=== PATIENT | female | born 1975 | race Caucasian/White ===

== ENCOUNTER 2017-12-19 11:24 | Inpatient (IN) ==
[2017-12-19] MEDS ORDERED: Sod Chloride 0.9% Inj 1,000 ML IV.SIG ONE (11:47)
[2017-12-19] MEDS ORDERED: Charcoal Activated Liq 25 GM/120 ML Bottle NG/OG ONE (11:54)
--- NOTE | 2017-12-19 12:01 | ED ---
HPI General Chief Complaint: Overdose Stated Complaint: Poss OD Time Seen by Provider: 12/19/17 11:42 Source: patient Mode of arrival: ambulatory Limitations: no limitations History of Present Illness HPI Narrative: 42-year-old female states that she overdosed on Motrin and Tylenol this morning. Patient states that she was feeling suicidal and took Motrin 200 mg, 4 tablets. Patient states that she took Tylenol 5 mg, 50 tablets this morning also. Patient states that she took the medication around 11:15 this morning. Patient states that she has mild headache. Patient denies any visual change. Patient denies any chest pain. Patient states that she has mild shortness of breath. Patient denies abdominal pain. Patient denies any focal weakness numbness of extremity. Patient denies any aspirin or alcohol consumption. Patient states that she on routine arthritis medication that she does not know the name of. Patient denies any history of suicidal attempts in the past. complaint: Reports intentional overdose Onset (ago): minute(s) Time: 11:15 Intent: suicide attempt How Overdose Was Discovered: other Treatments Prior to Arrival: none Related Data Home Medications Medication Instructions Recorded Confirmed Unable to Obtain Home Meds 12/19/17 12/19/17 Allergies Allergy/AdvReac Type Severity Reaction Status Date / Time Penicillins Allergy Anaphylaxis Verified 12/19/17 11:39 Review of Systems ROS: all other systems reviewed are negative [facility] Medical History Medical History Arthritis (Acute) Cholecystectomy planned (Acute) Depression (Acute) Social History Social History Substance History: No History of Abuse Second Hand Smoke Exposure: No Smoking Status: Never smoker How Often Do You Have a Drink Containing Alcohol: Never Recent Travel in [place] within the Last 8 Weeks: No Recent Out of Country Travel within the Last 8 Weeks: No Immunization History Tetanus Immunization: Unsure Exam Narrative Exam Narrative: GENERAL: Well-nourished, well-developed patient. SKIN: Focused skin assessment warm/dry. HEAD: Normocephalic. EYES: No scleral icterus. No injection or drainage. NECK: Supple, trachea midline. No JVD or lymphadenopathy. CARDIOVASCULAR: Regular rate and rhythm without murmurs, gallops, or rubs. RESPIRATORY: Breath sounds equal bilaterally. No accessory muscle use. GASTROINTESTINAL: Abdomen soft, non-tender, nondistended. MUSCULOSKELETAL: No cyanosis, or edema. BACK: Nontender without obvious deformity. No CVA tenderness. Neurologic exam normal. Course Initial Documented Vital Signs Temperature 98 F 12/19/17 11:32 Pulse Rate 111 H 12/19/17 11:32 Respiratory Rate 18 12/19/17 11:32 Blood Pressure 135/58 L 12/19/17 11:32 Pulse Oximetry 95 12/19/17 11:32 Last Documented Vital Signs Temperature 98 F 12/19/17 11:32 Pulse Rate 106 H 12/19/17 11:36 Respiratory Rate 18 12/19/17 11:36 Blood Pressure 116/57 L 12/19/17 11:36 Pulse Oximetry 96 12/19/17 11:55 Medical Decision Making MDM Narrative Medical decision making narrative: 42-year-old female stated overdose on Motrin and Tylenol. Poison control contacted. Advised routine blood work, charcoal, Tylenol level. Medical Screen Exam Complete: Yes Emergency Medical Condition: Yes Differential Diagnosis Differential Diagnosis: Differential diagnosis including depression, suicidal, drug overdose. Lab Data Result diagrams: 12/19/17 12:00 12/19/17 12:00 POC Results POC Urine Results Negative Lab Results 12/19/17 12/19/17 12/19/17 Range/Units 11:34 12:00 12:00 WBC 7.1 (4.0-11.0) th/mm3 RBC 4.15 (4.00-5.30) mil/mm3 Hgb 12.8 (11.6-15.3) gm/dL Hct 38.2 (35.0-46.0) % MCV 91.9 (80.0-100.0) fL MCH 30.9 (27.0-34.0) pg MCHC 33.6 (32.0-36.0) % RDW 14.4 (11.6-17.2) % Plt Count 237 (150-450) th/mm3 MPV 8.0 (7.0-11.0) fL Neut % (Auto) 58.7 (16.0-70.0) % Lymph % (Auto) 33.4 (9.0-44.0) % [place] % (Auto) 6.7 (0.0-8.0) % Eos % (Auto) 0.8 (0.0-4.0) % Baso % (Auto) 0.4 (0.0-2.0) % Neut # (Auto) 4.2 (1.8-7.7) th/mm3 Lymph # (Auto) 2.4 (1.0-4.8) th/mm3 [place] # (Auto) 0.5 (0.0-0.9) th/mm3 Eos # (Auto) 0.1 (0.0-0.4) th/mm3 Baso # (Auto) 0.0 (0.0-0.2) th/mm3 WBC Differential . Differential Comment Auto diff final PT 10.0 (9.8-11.6) sec INR 1.0 Ratio Sodium (136-145) meq/L Potassium (3.5-5.1) meq/L Chloride (98-107) meq/L Carbon Dioxide (21.0-32.0) meq/L Anion Gap (5-15) meq/L BUN (7-18) mg/dL Creatinine (0.50-1.00) mg/dL Estimated GFR (>89) mL/min POC Glucose 119 H (68-110) mg/dl Random Glucose (74-106) mg/dL Calcium (8.5-10.1) mg/dL Total Bilirubin (0.2-1.0) mg/dL AST (15-37) U/L ALT (10-53) U/L Alkaline Phosphatase (45-117) U/L Total Protein (6.4-8.2) g/dL Albumin (3.4-5.0) g/dL Salicylates (2.8-20.0) mg/dL Acetaminophen (10.0-30.0) mcg/mL Serum Alcohol (0-5) mg/dL 12/19/17 12/19/17 Range/Units 12:00 12:00 WBC (4.0-11.0) th/mm3 RBC (4.00-5.30) mil/mm3 Hgb (11.6-15.3) gm/dL Hct (35.0-46.0) % MCV (80.0-100.0) fL MCH (27.0-34.0) pg MCHC (32.0-36.0) % RDW (11.6-17.2) % Plt Count (150-450) th/mm3 MPV (7.0-11.0) fL Neut % (Auto) (16.0-70.0) % Lymph % (Auto) (9.0-44.0) % [place] % (Auto) (0.0-8.0) % Eos % (Auto) (0.0-4.0) % Baso % (Auto) (0.0-2.0) % Neut # (Auto) (1.8-7.7) th/mm3 Lymph # (Auto) (1.0-4.8) th/mm3 [place] # (Auto) (0.0-0.9) th/mm3 Eos # (Auto) (0.0-0.4) th/mm3 Baso # (Auto) (0.0-0.2) th/mm3 WBC Differential Differential Comment PT (9.8-11.6) sec INR Ratio Sodium 140 (136-145) meq/L Potassium 4.5 (3.5-5.1) meq/L Chloride 106 (98-107) meq/L Carbon Dioxide 22.7 (21.0-32.0) meq/L Anion Gap 11 (5-15) meq/L BUN 10 (7-18) mg/dL Creatinine 0.75 (0.50-1.00) mg/dL Estimated GFR 86 L (>89) mL/min POC Glucose (68-110) mg/dl Random Glucose 97 (74-106) mg/dL Calcium 9.1 (8.5-10.1) mg/dL Total Bilirubin 0.6 (0.2-1.0) mg/dL AST 83 H (15-37) U/L ALT 117 H (10-53) U/L Alkaline Phosphatase 74 (45-117) U/L Total Protein 7.7 (6.4-8.2) g/dL Albumin 3.5 (3.4-5.0) g/dL Salicylates Less than 1.7 L (2.8-20.0) mg/dL Acetaminophen 269.0 H* (10.0-30.0) mcg/mL Serum Alcohol Less than 3 (0-5) mg/dL Imaging Data Radiologist's impression: Chest X-Ray 12/19/17 11:47 CONCLUSION: No acute cardiopulmonary process Discharge Plan Discharge Disposition Patient Disposition: 30 Still Patient Discharge Details Diagnosis: Acetaminophen overdose Physicians Team ED Provider: Edwar Ryan Primary Care Provider: Primary Care Arlette Richter Rxs /Orders / Referrals /Forms Prescriptions: No Action Unable to Obtain Home Meds RF: 0 Discharge Interventions Interventions: Vital Signs Last Done: 12/19/17 13:00 Status ED Status: With Doctor
--- NOTE | 2017-12-19 12:06 | XR ---
EXAM DATE: 12/19/2017 11:59 AM EDT AGE/SEX: 42 years / Female INDICATIONS: Short of breath CLINICAL DATA: This is the patient's initial encounter. Patient reports that signs and symptoms have been present for 1 day and indicates a pain score of 0/10. MEDICAL/SURGICAL HISTORY: None. None. COMPARISON: No prior exams available for comparison. FINDINGS: A single AP view of the chest demonstrates the lungs to be symmetrically aerated without evidence of mass, infiltrate or effusion. The cardiomediastinal contours are unremarkable. Osseous structures a re intact. CONCLUSION: No acute cardiopulmonary process Electronically signed by: Sohail Acuna MD 12/19/2017 12:04 PM EDT
[2017-12-19 12:14] LABS: Baso % (Auto) 0.4 % (0.0-2.0); Eos # (Auto) 0.1 th/mm3 (0.0-0.4); Eos % (Auto) 0.8 % (0.0-4.0); Hematocrit 38.2 % (35.0-46.0); Hemoglobin 12.8 gm/dL (11.6-15.3); Lymph # (Auto) 2.4 th/mm3 (1.0-4.8); Lymph % (Auto) 33.4 % (9.0-44.0); Mean Corpuscular HGB Conc 33.6 % (32.0-36.0); Mean Corpuscular Hemoglobin 30.9 pg (27.0-34.0); Mean Corpuscular Volume 91.9 fL (80.0-100.0); Mono # (Auto) 0.5 th/mm3 (0.0-0.9); Mono % (Auto) 6.7 % (0.0-8.0); Neut # (Auto) 4.2 th/mm3 (1.8-7.7); Neut % (Auto) 58.7 % (16.0-70.0); Platelet Count 237 th/mm3 (150-450); Red Blood Count 4.15 mil/mm3 (4.00-5.30); Red Cell Distribution Width 14.4 % (11.6-17.2); White Blood Count 7.1 th/mm3 (4.0-11.0)
[2017-12-19 12:44] LABS: Alanine Aminotransferase 117 U/L (10-53); Albumin 3.5 g/dL (3.4-5.0); Alkaline Phosphatase 74 U/L (45-117); Anion Gap 11 meq/L (5-15); Aspartate Aminotransferase 83 U/L (15-37); Blood Urea Nitrogen 10 mg/dL (7-18); Calcium 9.1 mg/dL (8.5-10.1); Carbon Dioxide 22.7 meq/L (21.0-32.0); Chloride 106 meq/L (98-107); Glomerular Filtration Rate 86 mL/min (>89); Glucose,Random 97 mg/dL (74-106); Potassium 4.5 meq/L (3.5-5.1); Sodium 140 meq/L (136-145); Total Protein 7.7 g/dL (6.4-8.2)
[2017-12-19] MEDS ORDERED: ACETYLCYSTEINE IV.SIG ONE ×8 (12:55→22:00)
[2017-12-19] MEDS ORDERED: WATER IV.SIG ONE ×8 (12:55→22:00)
[2017-12-19] MEDS ORDERED: DEXTROSE 5% IV.SIG ONE ×8 (12:55→22:00)
--- NOTE | 2017-12-19 14:40 | P.HP ---
History of Present Illness Primary Care Physician: No Primary Care Physician Chief Complaint: Suicidal ideation/Tylenol OD History of Present Illness: 42-year-old female with a past medical history of depression, no prior history of suicidal ideation was brought to the ED for suicidal attempt. Patient states , she was trying to put in a.m. to her misery by taking 50 pills of 500 mg Tylenol along with 4 tablets of ibuprofen around 1130 this a.m. She states, within 15 minutes of taking dose medication she started feeling tired without any shortness of breath or chest pain. By the time she was brought to the ED after EMS was called patient states she wanted to go to sleep. She currently complains of headaches. She endorsed depression over the loss of the family home about a month ago. However, she denies any homicidal ideation. She is currently homeless. Patient also states about 5 years ago her daughter passed from complication of leukemia. Poison control was called by ED admitting physician. - Diagnosis (1) Acetaminophen overdose (2) Transaminitis (3) Depression Inpatient Certification: I certify that the inpatient services were ordered in accordance with Medicare regulations governing the order. This includes certification that hospital inpatient services are reasonable and necessary and in the case of services not specified as inpatient-only under 42 CFR 419.22(n), that they are appropriately provided as inpatient services in accordance to with the 2-midnight benchmark under 43 CFR 412.3(e) Estimated Total Length of Stay (Days): 2 Plans for Post Hospital Care: Other Review of Systems All other systems reviewed negative except as stated in HPI PMFSH - History History Provided By: Patient - Medical History Medical History: Medical History (Last Reviewed 12/19/17 @ 11:59 by Edwar Ryan MD) Arthritis Cholecystectomy planned Depression - Family History Family History: Family History (Last Updated 12/19/17 @ 14:38 by Colby Liao MD) Other Diabetes - Tobacco History Second Hand Smoke Exposure: No Smoking Status: Never smoker - Alcohol History How Often Do You Have a Drink Containing Alcohol: Never - Substance Use History Substance History: No History of Abuse - Travel History Recent Travel in the [place] Within the Last 8 Weeks: No Recent Travel Out of the Country Within the Last 8 Weeks: No - Immunization History Tetanus Immunization: Unsure Medications and Allergies Active Medications: Active Medications Al Hydroxide/Mg Hydroxide (Milk Of Magnesia Liq) 30 ml PO Q12H PRN PRN Reason: Mild Constipation Sodium Chloride (Ns Inj) 1,000 mls @ 70 mls/hr IV.CONT .[id number] JARVIS Ondansetron HCl (Zofran Inj) 4 mg IV.PUSH Q6H PRN PRN Reason: NAUSEA OR VOMITING Allergies Allergy/AdvReac Type Severity Reaction Status Date / Time Penicillins Allergy Anaphylaxis Verified 12/19/17 11:39 Home Medications Medication Instructions Recorded Confirmed Type Unable to Obtain Home Meds 12/19/17 12/19/17 History Exam Vital signs: Vital Signs 12/19/17 11:32 12/19/17 11:36 12/19/17 11:55 Temperature 98 F Pulse Rate 111 H 106 H Respiratory Rate 18 18 Blood Pressure 135/58 L 116/57 L Pulse Oximetry 95 97 96 12/19/17 13:00 12/19/17 13:39 Temperature Pulse Rate 82 77 Respiratory Rate 20 18 Blood Pressure 143/63 H 131/60 Pulse Oximetry 95 95 Intake & Output 12/18/17 12/19/17 12/19/17 18:59 06:59 18:59 Intake Total 1000 / 1000 Balance 1000 / 1000 Weight 136.078 kg Intake: IV 1000 / 1000 NS Inj 1,000 ML @ Wide Open IV. 1000 / 1000 SIG BOLUS ONE Rx#:[id number] Narrative: GENERAL: NAD SKIN: Warm and dry. HEAD: Atraumatic. Normocephalic. EYES: Pupils equal and round. No scleral icterus. No injection or drainage. ENT: No nasal bleeding or discharge. Mucous membranes pink and moist. NECK: Trachea midline. No JVD. CARDIOVASCULAR: Regular rate and rhythm. RESPIRATORY: No accessory muscle use. Clear to auscultation. Breath sounds equal bilaterally. GASTROINTESTINAL: Abdomen soft, non-tender, nondistended. Hepatic and splenic margins not palpable. MUSCULOSKELETAL: Extremities without clubbing, cyanosis, or edema. No obvious deformities. NEUROLOGICAL: Awake and alert. No obvious cranial nerve deficits. Motor grossly within normal limits. Five out of 5 muscle strength in the arms and legs. Normal speech. PSYCHIATRIC: depressed mood and flat affect; insight and judgment poor. Results - Labs CBC & Chem 7: 12/19/17 12:00 12/19/17 12:00 Labs: Laboratory Results - last 24 hr 12/19/17 12/19/17 12/19/17 11:34 12:00 12:00 WBC 7.1 RBC 4.15 Hgb 12.8 Hct 38.2 MCV 91.9 MCH 30.9 MCHC 33.6 RDW 14.4 Plt Count 237 MPV 8.0 Neut % (Auto) 58.7 Lymph % (Auto) 33.4 [place] % (Auto) 6.7 Eos % (Auto) 0.8 Baso % (Auto) 0.4 Neut # (Auto) 4.2 Lymph # (Auto) 2.4 [place] # (Auto) 0.5 Eos # (Auto) 0.1 Baso # (Auto) 0.0 WBC Differential . Differential Comment Auto diff final PT 10.0 INR 1.0 Sodium Potassium Chloride Carbon Dioxide Anion Gap BUN Creatinine Estimated GFR POC Glucose 119 H Random Glucose Calcium Total Bilirubin AST ALT Alkaline Phosphatase Total Protein Albumin Salicylates Acetaminophen Serum Alcohol 12/19/17 12/19/17 12:00 12:00 WBC RBC Hgb Hct MCV MCH MCHC RDW Plt Count MPV Neut % (Auto) Lymph % (Auto) [place] % (Auto) Eos % (Auto) Baso % (Auto) Neut # (Auto) Lymph # (Auto) [place] # (Auto) Eos # (Auto) Baso # (Auto) WBC Differential Differential Comment PT INR Sodium 140 Potassium 4.5 Chloride 106 Carbon Dioxide 22.7 Anion Gap 11 BUN 10 Creatinine 0.75 Estimated GFR 86 L POC Glucose Random Glucose 97 Calcium 9.1 Total Bilirubin 0.6 AST 83 H ALT 117 H Alkaline Phosphatase 74 Total Protein 7.7 Albumin 3.5 Salicylates Less than 1.7 L Acetaminophen 269.0 H* Serum Alcohol Less than 3 - Imaging Impressions Chest X-Ray 12/19/17 11:47 CONCLUSION: No acute cardiopulmonary process Caprini VTE Risk Assessment Caprini VTE Risk Assessment: No/Low Risk (score <= 1) Caprini Risk Assessment Model: Point Value = 1 Point Value = 2 Point Value = 3 Point Value = 5 Age 41-60 Minor surgery BMI > 25 kg/m2 Swollen legs Varicose veins or History of unexplained or recurrent spontaneous Oral contraceptives or hormone replacement Sepsis (< 1 month) Serious lung disease, including pneumonia (< 1 month) Abnormal pulmonary function Acute myocardial infarction Congestive heart failure (< 1 month) History of inflammatory bowel disease Medical patient at bed rest Age 61-74 Arthroscopic surgery Major open surgery (> 45 min) Laparoscopic surgery (> 45 min) Malignancy Confined to bed (> 72 hours) Immobilizing plaster cast Central venous access Age >= 75 History of VTE Family history of VTE Factor V Leiden Prothrombin [id number] Lupus anticoagulant Anticardiolipin antibodies Elevated serum homocysteine Heparin-induced thrombocytopenia Other congenital or acquired thrombophilia Stroke (< 1 month) Elective arthroplasty Hip, pelvis, or leg fracture Acute spinal cord injury (< 1 month) Prophylaxis Regimen: Total Risk Factor Score Risk Level Prophylaxis Regimen 0-1 Low Early ambulation 2 Moderate Order ONE of the following: *Sequential Compression Device (SCD) *Heparin 5000 units SQ BID 3-4 Higher Order ONE of the following medications: *Heparin 5000 units SQ TID *Enoxaparin/Lovenox 40 mg SQ daily (WT < 150 kg, CrCl > 30 mL/min) *Enoxaparin/Lovenox 30 mg SQ daily (WT < 150 kg, CrCl > 10-29 mL/min) *Enoxaparin/Lovenox 30 mg SQ BID (WT < 150 kg, CrCl > 30 mL/min) AND/OR *Sequential Compression Device (SCD) 5 or more Highest Order ONE of the following medications: *Heparin 5000 units SQ TID (Preferred with Epidurals) *Enoxaparin/Lovenox 40 mg SQ daily (WT < 150 kg, CrCl > 30 mL/min) *Enoxaparin/Lovenox 30 mg SQ daily (WT < 150 kg, CrCl > 10-29 mL/min) *Enoxaparin/Lovenox 30 mg SQ BID (WT < 150 kg, CrCl > 30 mL/min) AND *Sequential Compression Device (SCD) Assessment and Plan - Assessment (1) Acetaminophen overdose Code(s): T39.1X1A - Poisoning by 4-Aminophenol derivatives, accidental ( unintentional), initial encounter Status: Acute (2) Transaminitis Code(s): R74.0 - Nonspecific elevation of levels of transaminase and lactic acid dehydrogenase [LDH] Status: Acute (3) Depression Code(s): F32.9 - Major depressive disorder, single episode, unspecified Status : Acute - Plan 42-year-old female with Acetaminophen overdose Poison control was contacted, and patient underwent treatment with N acetylcysteine, charcoal per protocol Continue monitoring acetaminophen and salicylate levels, LFTs, INR Gentle IV fluid hydration Neuro check, telemetry Admit to ICU History of depression Suicidal attempt Psychiatry consultation pending Transaminitis Check hepatitis profile DVT prophylaxis: Bilateral SCDs (1) Acetaminophen overdose Qualifiers: Encounter type: initial encounter Injury intent: intentional self-harm Qualified Code(s): T39.1X2A - Poisoning by 4-Aminophenol derivatives, intentional self-harm, initial encounter
[2017-12-19 14:44] LABS: Bacteria,Urine Rare /hpf; Bilirubin,Urine Negative (Negative); Clarity,Urine Clear (Clear); Color,Urine Yellow (Yellw/Straw); Glucose,Urine (UA) Negative (Negative); Leukocyte Esterase,Urine Negative (Negative); Mucus,Urine Few /lpf (Occasional); Nitrite,Urine Negative (Negative); Specific Gravity,Urine 1.013 (1.002-1.035); Squamous Epithelial Cell,Urine 1 /hpf (0-5)
[2017-12-19 14:49] LABS: Amphetamine Screen,Urine Neg (Neg); Barbiturate Screen,Urine Neg (Neg); Cannabinoid Screen,Urine Neg (Neg); Cocaine Screen,Urine Neg (Neg)
[2017-12-19 14:50] LABS: Opiate Screen,Urine Neg (Neg)
[2017-12-19] MEDS ORDERED: Influenza (Quadrivalent) Vaccine 0.5 ML Syringe IM ONE (16:30)
[2017-12-19] MEDS: Sod Chloride 0.9% Inj 1,000 ML IV.CONT SCH (21:51)
[2017-12-20 00:25] LABS: Hepatitis A IgM Antibody Nonreactive (Nonreactive); Hepatitits B Surface Antigen Nonreactive (Nonreactive)
[2017-12-20] MEDS ORDERED: Chlorhexidine Gluconate 2% 1 Pack (2 Cloths) TOPICAL PRN (04:00)
[2017-12-20] MEDS: Sod Chloride 0.9% Inj 1,000 ML IV.CONT SCH (05:00)
[2017-12-20] MEDS: Chlorhexidine Gluconate 2% 1 Pack (2 Cloths) TOPICAL SCH (05:04)
[2017-12-20 06:17] LABS: Baso % (Auto) 0.5 % (0.0-2.0); Eos % (Auto) 1.4 % (0.0-4.0); Hematocrit 37.1 % (35.0-46.0); Lymph # (Auto) 1.3 th/mm3 (1.0-4.8); Lymph % (Auto) 38.6 % (9.0-44.0); Mean Corpuscular HGB Conc 32.4 % (32.0-36.0); Mean Corpuscular Volume 92.8 fL (80.0-100.0); Mean Platelet Volume 7.8 fL (7.0-11.0); Mono # (Auto) 0.2 th/mm3 (0.0-0.9); Mono % (Auto) 6.4 % (0.0-8.0); Neut # (Auto) 1.8 th/mm3 (1.8-7.7); Neut % (Auto) 53.1 % (16.0-70.0); Platelet Count 206 th/mm3 (150-450); Red Cell Distribution Width 14.9 % (11.6-17.2); White Blood Count 3.3 th/mm3 (4.0-11.0)
[2017-12-20 06:23] LABS: INR 1.1 Ratio; Prothrombin Time 10.7 sec (9.8-11.6)
[2017-12-20 06:39] LABS: Alanine Aminotransferase 98 U/L (10-53); Albumin 2.8 g/dL (3.4-5.0); Alkaline Phosphatase 58 U/L (45-117); Anion Gap 11 meq/L (5-15); Aspartate Aminotransferase 53 U/L (15-37); Blood Urea Nitrogen 5 mg/dL (7-18); Carbon Dioxide 23.8 meq/L (21.0-32.0); Chloride 108 meq/L (98-107); Glomerular Filtration Rate Greater Than 89 mL/min (>89); Glucose,Random 98 mg/dL (74-106); Potassium 3.3 meq/L (3.5-5.1); Sodium 143 meq/L (136-145); Total Protein 6.5 g/dL (6.4-8.2)
--- NOTE | 2017-12-20 09:14 | P.PN ---
Subjective Interval history: Follow-up acetaminophen overdose December 20, 2017-patient seen and examined, she reported one episode of emesis overnight otherwise stable denies any abdominal pain. Vital stable this a.m. Physical Exam Vital signs: Vital Signs 12/19/17 11:32 12/19/17 11:36 12/19/17 11:55 Temperature 98 F Pulse Rate 111 H 106 H Respiratory Rate 18 18 Blood Pressure 135/58 L 116/57 L Pulse Oximetry 95 97 96 12/19/17 13:00 12/19/17 13:39 12/19/17 14:41 Temperature Pulse Rate 82 77 82 Respiratory Rate 20 18 18 Blood Pressure 143/63 H 131/60 140/80 Pulse Oximetry 95 95 12/19/17 20:00 12/20/17 00:00 12/20/17 04:00 Temperature 98.7 F 98.3 F Pulse Rate 74 74 Respiratory Rate 20 16 18 Blood Pressure 130/69 116/61 Pulse Oximetry 96 95 Intake & Output 12/19/17 12/20/17 12/20/17 18:59 06:59 18:59 Intake Total 1275 / 1275 1618 / 1618 Balance 1275 / 1275 1618 / 1618 Weight 126.5 kg 126.5 kg Intake: IV 1275 / 1275 1018 / 1018 Acetadote Inj 10,000 MG In D5W 493 / 493 Inj 1,000 ML @ 65.625 mls/hr IV .SIG ONCE ONE Rx#:[id number] Acetadote Inj 15,000 MG In D5W 275 / 275 Inj 200 ML @ 275 mls/hr IV.SIG ONCE ONE Rx#:[id number] Acetadote Inj 5,000 MG In D5W 525 / 525 Inj 500 ML @ 131.25 mls/hr IV. SIG ONCE ONE Rx#:[id number] NS Inj 1,000 ML @ Wide Open IV. 1000 / 1000 SIG BOLUS ONE Rx#:[id number] Oral 600 / 600 Other: # Voids 1 3 Date of Last Bowel Movement 12/18/17 # Bowel Movements 0 Weight On Admission 126.5 kg Narrative: GENERAL: NAD SKIN: Warm and dry. HEAD: Atraumatic. Normocephalic. EYES: Pupils equal and round. No scleral icterus. No injection or drainage. ENT: No nasal bleeding or discharge. Mucous membranes pink and moist. NECK: Trachea midline. No JVD. CARDIOVASCULAR: Regular rate and rhythm. RESPIRATORY: No accessory muscle use. Clear to auscultation. Breath sounds equal bilaterally. GASTROINTESTINAL: Abdomen soft, non-tender, nondistended. Hepatic and splenic margins not palpable. MUSCULOSKELETAL: Extremities without clubbing, cyanosis, or edema. No obvious deformities. NEUROLOGICAL: Awake and alert. No obvious cranial nerve deficits. Motor grossly within normal limits. Five out of 5 muscle strength in the arms and legs. Normal speech. PSYCHIATRIC: depressed mood and flat affect; insight and judgment poor. Results - Labs CBC & Chem 7: 12/20/17 03:47 12/20/17 03:47 Laboratory Results - last 24 hr 12/19/17 12/19/17 12/19/17 11:34 12:00 12:00 WBC 7.1 RBC 4.15 Hgb 12.8 Hct 38.2 MCV 91.9 MCH 30.9 MCHC 33.6 RDW 14.4 Plt Count 237 MPV 8.0 Neut % (Auto) 58.7 Lymph % (Auto) 33.4 [place] % (Auto) 6.7 Eos % (Auto) 0.8 Baso % (Auto) 0.4 Neut # (Auto) 4.2 Lymph # (Auto) 2.4 [place] # (Auto) 0.5 Eos # (Auto) 0.1 Baso # (Auto) 0.0 WBC Differential . Differential Comment Auto diff final PT 10.0 INR 1.0 Sodium Potassium Chloride Carbon Dioxide Anion Gap BUN Creatinine Estimated GFR POC Glucose 119 H Random Glucose Calcium Total Bilirubin AST ALT Alkaline Phosphatase Total Protein Albumin Urine Color Urine Clarity Urine pH Ur Specific [place] Urine Protein Urine Glucose (UA) Urine Ketones Urine Occult Blood Urine Nitrate Urine Bilirubin Urine Urobilinogen Ur Leukocyte Esterase Urine RBC Urine WBC Ur Squamous Epith Cells Urine Bacteria Urine Mucus Micro UA Comment Ur Microscopic Review Urine Culture Comments Nasal Screen MRSA (PCR) Salicylates Urine Opiates Screen Acetaminophen Ur Barbiturates Screen Ur Amphetamines Screen U Benzodiazepines Scrn Urine Cocaine Screen U Cannabinoids Screen Serum Alcohol Hepatitis A IgM Ab Hep Bs Antigen Hep B Core IgM Ab Hep C IgG Ab 12/19/17 12/19/17 12/19/17 12:00 12:00 14:24 WBC RBC Hgb Hct MCV MCH MCHC RDW Plt Count MPV Neut % (Auto) Lymph % (Auto) [place] % (Auto) Eos % (Auto) Baso % (Auto) Neut # (Auto) Lymph # (Auto) [place] # (Auto) Eos # (Auto) Baso # (Auto) WBC Differential Differential Comment PT INR Sodium 140 Potassium 4.5 Chloride 106 Carbon Dioxide 22.7 Anion Gap 11 BUN 10 Creatinine 0.75 Estimated GFR 86 L POC Glucose Random Glucose 97 Calcium 9.1 Total Bilirubin 0.6 AST 83 H ALT 117 H Alkaline Phosphatase 74 Total Protein 7.7 Albumin 3.5 Urine Color Urine Clarity Urine pH Ur Specific [place] Urine Protein Urine Glucose (UA) Urine Ketones Urine Occult Blood Urine Nitrate Urine Bilirubin Urine Urobilinogen Ur Leukocyte Esterase Urine RBC Urine WBC Ur Squamous Epith Cells Urine Bacteria Urine Mucus Micro UA Comment Ur Microscopic Review Urine Culture Comments Nasal Screen MRSA (PCR) Salicylates Less than 1.7 L Urine Opiates Screen Neg Acetaminophen 269.0 H* Ur Barbiturates Screen Neg Ur Amphetamines Screen Neg U Benzodiazepines Scrn Neg Urine Cocaine Screen Neg U Cannabinoids Screen Neg Serum Alcohol Less than 3 Hepatitis A IgM Ab Hep Bs Antigen Hep B Core IgM Ab Hep C IgG Ab 12/19/17 12/19/17 12/19/17 14:24 15:22 22:03 WBC RBC Hgb Hct MCV MCH MCHC RDW Plt Count MPV Neut % (Auto) Lymph % (Auto) [place] % (Auto) Eos % (Auto) Baso % (Auto) Neut # (Auto) Lymph # (Auto) [place] # (Auto) Eos # (Auto) Baso # (Auto) WBC Differential Differential Comment PT INR Sodium Potassium Chloride Carbon Dioxide Anion Gap BUN Creatinine Estimated GFR POC Glucose Random Glucose Calcium Total Bilirubin AST ALT Alkaline Phosphatase Total Protein Albumin Urine Color Yellow Urine Clarity Clear Urine pH 5.0 Ur Specific [place] 1.013 Urine Protein Negative Urine Glucose (UA) Negative Urine Ketones Negative Urine Occult Blood Negative Urine Nitrate Negative Urine Bilirubin Negative Urine Urobilinogen Less than 2 Ur Leukocyte Esterase Negative Urine RBC Less than 1 Urine WBC 1 Ur Squamous Epith Cells 1 Urine Bacteria Rare H Urine Mucus Few H Micro UA Comment Culture not ind Ur Microscopic Review Not Reportable Urine Culture Comments Culture not ind Nasal Screen MRSA (PCR) Not detected Salicylates Urine Opiates Screen Acetaminophen 23.6 Ur Barbiturates Screen Ur Amphetamines Screen U Benzodiazepines Scrn Urine Cocaine Screen U Cannabinoids Screen Serum Alcohol Hepatitis A IgM Ab Hep Bs Antigen Hep B Core IgM Ab Hep C IgG Ab 12/19/17 12/19/17 12/20/17 22:03 22:03 03:47 WBC RBC Hgb Hct MCV MCH MCHC RDW Plt Count MPV Neut % (Auto) Lymph % (Auto) [place] % (Auto) Eos % (Auto) Baso % (Auto) Neut # (Auto) Lymph # (Auto) [place] # (Auto) Eos # (Auto) Baso # (Auto) WBC Differential Differential Comment PT 10.7 INR 1.1 Sodium Potassium Chloride Carbon Dioxide Anion Gap BUN Creatinine Estimated GFR POC Glucose Random Glucose Calcium Total Bilirubin AST ALT Alkaline Phosphatase Total Protein Albumin Urine Color Urine Clarity Urine pH Ur Specific [place] Urine Protein Urine Glucose (UA) Urine Ketones Urine Occult Blood Urine Nitrate Urine Bilirubin Urine Urobilinogen Ur Leukocyte Esterase Urine RBC Urine WBC Ur Squamous Epith Cells Urine Bacteria Urine Mucus Micro UA Comment Ur Microscopic Review Urine Culture Comments Nasal Screen MRSA (PCR) Salicylates Less than 1.7 L Urine Opiates Screen Acetaminophen Ur Barbiturates Screen Ur Amphetamines Screen U Benzodiazepines Scrn Urine Cocaine Screen U Cannabinoids Screen Serum Alcohol Hepatitis A IgM Ab Nonreactive Hep Bs Antigen Nonreactive Hep B Core IgM Ab Nonreactive Hep C IgG Ab Nonreactive 12/20/17 12/20/17 12/20/17 03:47 03:47 03:47 WBC 3.3 L D RBC 4.00 Hgb 12.0 Hct 37.1 MCV 92.8 MCH 30.0 MCHC 32.4 RDW 14.9 Plt Count 206 MPV 7.8 Neut % (Auto) 53.1 Lymph % (Auto) 38.6 [place] % (Auto) 6.4 Eos % (Auto) 1.4 Baso % (Auto) 0.5 Neut # (Auto) 1.8 Lymph # (Auto) 1.3 [place] # (Auto) 0.2 Eos # (Auto) 0.0 Baso # (Auto) 0.0 WBC Differential . Differential Comment Auto diff final PT INR Sodium Potassium Chloride Carbon Dioxide Anion Gap BUN Creatinine Estimated GFR POC Glucose Random Glucose Calcium Total Bilirubin AST ALT Alkaline Phosphatase Total Protein Albumin Urine Color Urine Clarity Urine pH Ur Specific [place] Urine Protein Urine Glucose (UA) Urine Ketones Urine Occult Blood Urine Nitrate Urine Bilirubin Urine Urobilinogen Ur Leukocyte Esterase Urine RBC Urine WBC Ur Squamous Epith Cells Urine Bacteria Urine Mucus Micro UA Comment Ur Microscopic Review Urine Culture Comments Nasal Screen MRSA (PCR) Salicylates Less than 1.7 L Urine Opiates Screen Acetaminophen 3.9 L Ur Barbiturates Screen Ur Amphetamines Screen U Benzodiazepines Scrn Urine Cocaine Screen U Cannabinoids Screen Serum Alcohol Hepatitis A IgM Ab Hep Bs Antigen Hep B Core IgM Ab Hep C IgG Ab 12/20/17 03:47 WBC RBC Hgb Hct MCV MCH MCHC RDW Plt Count MPV Neut % (Auto) Lymph % (Auto) [place] % (Auto) Eos % (Auto) Baso % (Auto) Neut # (Auto) Lymph # (Auto) [place] # (Auto) Eos # (Auto) Baso # (Auto) WBC Differential Differential Comment PT INR Sodium 143 Potassium 3.3 L D Chloride 108 H Carbon Dioxide 23.8 Anion Gap 11 BUN 5 L Creatinine 0.58 Estimated GFR Greater than 89 POC Glucose Random Glucose 98 Calcium 8.0 L D Total Bilirubin 0.4 AST 53 H ALT 98 H Alkaline Phosphatase 58 Total Protein 6.5 D Albumin 2.8 L D Urine Color Urine Clarity Urine pH Ur Specific [place] Urine Protein Urine Glucose (UA) Urine Ketones Urine Occult Blood Urine Nitrate Urine Bilirubin Urine Urobilinogen Ur Leukocyte Esterase Urine RBC Urine WBC Ur Squamous Epith Cells Urine Bacteria Urine Mucus Micro UA Comment Ur Microscopic Review Urine Culture Comments Nasal Screen MRSA (PCR) Salicylates Urine Opiates Screen Acetaminophen Ur Barbiturates Screen Ur Amphetamines Screen U Benzodiazepines Scrn Urine Cocaine Screen U Cannabinoids Screen Serum Alcohol Hepatitis A IgM Ab Hep Bs Antigen Hep B Core IgM Ab Hep C IgG Ab - Imaging Impressions Chest X-Ray 12/19/17 11:47 CONCLUSION: No acute cardiopulmonary process - Procedures None Assessment and Plan - Assessment (1) Acetaminophen overdose Code(s): T39.1X1A - Poisoning by 4-Aminophenol derivatives, accidental ( unintentional), initial encounter Status: Acute (2) Transaminitis Code(s): R74.0 - Nonspecific elevation of levels of transaminase and lactic acid dehydrogenase [LDH] Status: Acute (3) Depression Code(s): F32.9 - Major depressive disorder, single episode, unspecified Status : Acute - Plan 42-year-old female with Acetaminophen overdose Poison control was contacted, and patient is currently receiving treatment with N acetylcysteine, charcoal per protocol acetaminophen and salicylate levels now wnl d/c IV fluid hydration Neuro check, telemetry History of depression Suicidal attempt Psychiatry consultation pending Transaminitis hepatitis profile negative LFTs trending down Hypokalemia Give potassium 60 mEq x1 now and monitor electrolyte DVT prophylaxis: Bilateral SCDs (1) Acetaminophen overdose Qualifiers: Encounter type: initial encounter Injury intent: intentional self-harm Qualified Code(s): T39.1X2A - Poisoning by 4-Aminophenol derivatives, intentional self-harm, initial encounter
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
[2017-12-20 14:30] LABS: Activated Partial Thrombo Time 27.5 sec (24.3-30.1); INR 1.1 Ratio; Prothrombin Time 10.7 sec (9.8-11.6)
[2017-12-21] MEDS: Chlorhexidine Gluconate 2% 1 Pack (2 Cloths) TOPICAL SCH (05:36)
--- NOTE | 2017-12-21 08:50 | P.PN ---
Subjective Interval history: Follow-up acetaminophen overdose December 20, 2017-patient seen and examined, she reported one episode of emesis overnight otherwise stable denies any abdominal pain. Vital stable this a.m. December 21, 2017-patient seen and examined, she completed treatment with N- acetylcysteine. Denies any abdominal pain, nausea or vomiting. Denies any shortness of breath or chest pain. Patient was seen by psychiatry. She is medically clear at this point for discharge and she will be discharged to inpatient psychiatry. Physical Exam Vital signs: Vital Signs 12/20/17 09:00 12/20/17 10:37 12/20/17 10:38 Pulse Rate 81 Pulse Oximetry 97 98 12/20/17 20:00 12/20/17 22:05 Pulse Rate Pulse Oximetry 97 96 Intake & Output 12/20/17 12/21/17 12/21/17 18:59 06:59 18:59 Intake Total 1457 / 1457 600 / 600 Output Total 800 / 800 Balance 657 / 657 600 / 600 Weight 125 kg Intake: IV 557 / 557 Acetadote Inj 10,000 MG In D5W 557 / 557 Inj 1,000 ML @ 65.625 mls/hr IV .SIG ONCE ONE Rx#:[id number] Oral 900 / 900 600 / 600 Output: Urine 800 / 800 Other: # Voids 3 Date of Last Bowel Movement 12/20/17 12/20/17 # Bowel Movements 2 Narrative: GENERAL: NAD SKIN: Warm and dry. HEAD: Atraumatic. Normocephalic. EYES: Pupils equal and round. No scleral icterus. No injection or drainage. ENT: No nasal bleeding or discharge. Mucous membranes pink and moist. NECK: Trachea midline. No JVD. CARDIOVASCULAR: Regular rate and rhythm. RESPIRATORY: No accessory muscle use. Clear to auscultation. Breath sounds equal bilaterally. GASTROINTESTINAL: Abdomen soft, non-tender, nondistended. Hepatic and splenic margins not palpable. MUSCULOSKELETAL: Extremities without clubbing, cyanosis, or edema. No obvious deformities. NEUROLOGICAL: Awake and alert. No obvious cranial nerve deficits. Motor grossly within normal limits. Five out of 5 muscle strength in the arms and legs. Normal speech. PSYCHIATRIC: depressed mood and flat affect; insight and judgment poor. Results - Labs CBC & Chem 7: 12/20/17 03:47 12/20/17 03:47 Laboratory Results - last 24 hr 12/19/17 12/20/17 12/20/17 19:29 10:58 10:58 PT INR APTT Nasal Screen MRSA (PCR) Mrsa detected Salicylates Less than 1.7 L Acetaminophen Less than 2.0 L 12/20/17 13:06 PT 10.7 INR 1.1 APTT 27.5 Nasal Screen MRSA (PCR) Salicylates Acetaminophen - Procedures None Assessment and Plan - Assessment (1) Acetaminophen overdose Code(s): T39.1X1A - Poisoning by 4-Aminophenol derivatives, accidental ( unintentional), initial encounter Status: Acute (2) Transaminitis Code(s): R74.0 - Nonspecific elevation of levels of transaminase and lactic acid dehydrogenase [LDH] Status: Acute (3) Depression Code(s): F32.9 - Major depressive disorder, single episode, unspecified Status : Acute - Plan 42-year-old female with Acetaminophen overdose Poison control was contacted, and patient received treatment with N acetylcysteine, charcoal per protocol acetaminophen and salicylate levels now wnl d/c IV fluid hydration Patient is medically clear for discharge to inpatient psychiatry History of depression Suicidal attempt Psychiatry input appreciated Transaminitis hepatitis profile negative LFTs trending down Hypokalemia Treated with replacement DVT prophylaxis: Bilateral SCDs Patient is medically clear for discharge to inpatient psychiatry (1) Acetaminophen overdose Qualifiers: Encounter type: initial encounter Injury intent: intentional self-harm Qualified Code(s): T39.1X2A - Poisoning by 4-Aminophenol derivatives, intentional self-harm, initial encounter
--- NOTE | 2017-12-21 08:53 | P.DS ---
Date of admission: 12/19/17 13:42 Primary care physician: No Primary Care Physician Brief History from admission: 42-year-old female with a past medical history of depression, no prior history of suicidal ideation was brought to the ED for suicidal attempt. Patient states , she was trying to put in a.m. to her misery by taking 50 pills of 500 mg Tylenol along with 4 tablets of ibuprofen around 1130 this a.m. She states, within 15 minutes of taking dose medication she started feeling tired without any shortness of breath or chest pain. By the time she was brought to the ED after EMS was called patient states she wanted to go to sleep. She currently complains of headaches. She endorsed depression over the loss of the family home about a month ago. However, she denies any homicidal ideation. She is currently homeless. Patient also states about 5 years ago her daughter passed from complication of leukemia. Poison control was called by ED admitting physician. DS: Diagnosis - Discharge Diagnosis (1) Acetaminophen overdose Status: Acute (2) Transaminitis Status: Acute (3) Depression Status: Acute DS: Summary Hospital Course: While in the hospital, the patient was treated for: Acetaminophen overdose Poison control was contacted, and patient received treatment with N acetylcysteine, charcoal per protocol acetaminophen and salicylate levels now wnl History of depression Suicidal attempt Psychiatry input appreciated Transaminitis hepatitis profile negative LFTs trending down Hypokalemia Treated with replacement DVT prophylaxis: Bilateral SCDs - Time Spent with Patient Total time spent providing and/or coordinating discharge services: Greater than 30 minutes - Quality: VTE Deep Vein Thrombosis/Pulmonary Embolism Present on Admission: Yes Exam Vital signs: Vital Signs 12/20/17 09:00 12/20/17 10:37 12/20/17 10:38 Pulse Rate 81 Pulse Oximetry 97 98 12/20/17 20:00 12/20/17 22:05 Pulse Rate Pulse Oximetry 97 96 Intake & Output 12/20/17 12/21/17 12/21/17 18:59 06:59 18:59 Intake Total 1457 / 1457 600 / 600 Output Total 800 / 800 Balance 657 / 657 600 / 600 Weight 125 kg Intake: IV 557 / 557 Acetadote Inj 10,000 MG In D5W 557 / 557 Inj 1,000 ML @ 65.625 mls/hr IV .SIG ONCE ONE Rx#:[id number] Oral 900 / 900 600 / 600 Output: Urine 800 / 800 Other: # Voids 3 Date of Last Bowel Movement 12/20/17 12/20/17 # Bowel Movements 2 Narrative: GENERAL: NAD SKIN: Warm and dry. HEAD: Atraumatic. Normocephalic. EYES: Pupils equal and round. No scleral icterus. No injection or drainage. ENT: No nasal bleeding or discharge. Mucous membranes pink and moist. NECK: Trachea midline. No JVD. CARDIOVASCULAR: Regular rate and rhythm. RESPIRATORY: No accessory muscle use. Clear to auscultation. Breath sounds equal bilaterally. GASTROINTESTINAL: Abdomen soft, non-tender, nondistended. Hepatic and splenic margins not palpable. MUSCULOSKELETAL: Extremities without clubbing, cyanosis, or edema. No obvious deformities. NEUROLOGICAL: Awake and alert. No obvious cranial nerve deficits. Motor grossly within normal limits. Five out of 5 muscle strength in the arms and legs. Normal speech. PSYCHIATRIC: depressed mood and flat affect; insight and judgment poor. Results Procedures completed during hospitalization: None Labs on day of discharge: Labs from last 24 hours 12/20/17 12/20/17 12/20/17 13:06 10:58 10:58 PT 10.7 INR 1.1 APTT 27.5 Nasal Screen MRSA (PCR) Salicylates Less than 1.7 L Acetaminophen Less than 2.0 L 12/19/17 19:29 PT INR APTT Nasal Screen MRSA (PCR) Mrsa detected Salicylates Acetaminophen - Impressions ITS Impressions Chest X-Ray 12/19/17 11:47 CONCLUSION: No acute cardiopulmonary process Discharge Plan - Discharge Disposition Patient Disposition: 67 Disc To [facility] Facility - Discharge Condition Condition: Fair - Discharge Order Discharge Orders: Discharge Order (Routine); Ordered 12/21/17 Ordered By: Colby Liao - Physicians Team Primary Care Provider: Primary Care Physici,No Attending Provider: Colby Liao Other Providers: Wesley Laird DO
[2017-12-22] MEDS: Chlorhexidine Gluconate 2% 1 Pack (2 Cloths) TOPICAL SCH (07:40)
--- NOTE | 2017-12-22 10:46 | P.PN ---
Subjective Interval history: Follow-up acetaminophen overdose December 20, 2017-patient seen and examined, she reported one episode of emesis overnight otherwise stable denies any abdominal pain. Vital stable this a.m. December 21, 2017-patient seen and examined, she completed treatment with N- acetylcysteine. Denies any abdominal pain, nausea or vomiting. Denies any shortness of breath or chest pain. Patient was seen by psychiatry. She is medically clear at this point for discharge and she will be discharged to inpatient psychiatry. December 22, 2017-patient seen and examined, initially discharged to inpatient psychiatry however no bed is available at this point. Patient is medically stable. Only complaint of headaches. No heart palpitation or chest pain. Physical Exam Vital signs: Vital Signs 12/21/17 12:00 12/21/17 14:11 12/21/17 15:40 Temperature 98.4 F 98 F 97.4 F L Pulse Rate 86 90 95 H Respiratory Rate 22 18 18 Blood Pressure 133/94 H 134/93 H 121/59 L Pulse Oximetry 95 97 99 12/21/17 20:00 12/22/17 00:00 12/22/17 04:00 Temperature 98.0 F 98.1 F 98.0 F Pulse Rate 94 H 78 71 Respiratory Rate 17 19 20 Blood Pressure 121/63 102/50 L 128/70 Pulse Oximetry 98 96 97 12/22/17 08:00 Temperature 97.9 F Pulse Rate 81 Respiratory Rate 18 Blood Pressure 108/64 Pulse Oximetry 97 Intake & Output 12/21/17 12/22/17 12/22/17 18:59 06:59 18:59 Intake Total 400 / 400 Balance 400 / 400 Weight 126.7 kg Intake: Oral 400 / 400 Other: # Voids 2 3 Date of Last Bowel Movement 12/20/17 Narrative: GENERAL: NAD SKIN: Warm and dry. HEAD: Atraumatic. Normocephalic. EYES: Pupils equal and round. No scleral icterus. No injection or drainage. ENT: No nasal bleeding or discharge. Mucous membranes pink and moist. NECK: Trachea midline. No JVD. CARDIOVASCULAR: Regular rate and rhythm. RESPIRATORY: No accessory muscle use. Clear to auscultation. Breath sounds equal bilaterally. GASTROINTESTINAL: Abdomen soft, non-tender, nondistended. Hepatic and splenic margins not palpable. MUSCULOSKELETAL: Extremities without clubbing, cyanosis, or edema. No obvious deformities. NEUROLOGICAL: Awake and alert. No obvious cranial nerve deficits. Motor grossly within normal limits. Five out of 5 muscle strength in the arms and legs. Normal speech. PSYCHIATRIC: depressed mood and flat affect; insight and judgment poor. Results - Labs CBC & Chem 7: 12/20/17 03:47 12/20/17 03:47 - Procedures None Assessment and Plan - Assessment (1) Acetaminophen overdose Code(s): T39.1X1A - Poisoning by 4-Aminophenol derivatives, accidental ( unintentional), initial encounter Status: Acute (2) Transaminitis Code(s): R74.0 - Nonspecific elevation of levels of transaminase and lactic acid dehydrogenase [LDH] Status: Acute (3) Depression Code(s): F32.9 - Major depressive disorder, single episode, unspecified Status : Acute - Plan 42-year-old female with Acetaminophen overdose Poison control was contacted, and patient received treatment with N acetylcysteine, charcoal per protocol acetaminophen and salicylate levels now wnl d/c IV fluid hydration Patient has been medically clear for discharge to inpatient psychiatry since December 21, 2017 History of depression Suicidal attempt Psychiatry input appreciated Awaiting for bed availability to inpatient psychiatry for transfer Transaminitis hepatitis profile negative LFTs trending down Hypokalemia Treated with replacement DVT prophylaxis: Bilateral SCDs Patient has been medically clear for discharge to inpatient psychiatry since December 21, 2017 (1) Acetaminophen overdose Qualifiers: Encounter type: initial encounter Injury intent: intentional self-harm Qualified Code(s): T39.1X2A - Poisoning by 4-Aminophenol derivatives, intentional self-harm, initial encounter
[2017-12-23] MEDS: Chlorhexidine Gluconate 2% 1 Pack (2 Cloths) TOPICAL SCH (04:36)
--- NOTE | 2017-12-23 08:59 | P.PN ---
Subjective Interval history: Follow-up acetaminophen overdose December 20, 2017-patient seen and examined, she reported one episode of emesis overnight otherwise stable denies any abdominal pain. Vital stable this a.m. December 21, 2017-patient seen and examined, she completed treatment with N- acetylcysteine. Denies any abdominal pain, nausea or vomiting. Denies any shortness of breath or chest pain. Patient was seen by psychiatry. She is medically clear at this point for discharge and she will be discharged to inpatient psychiatry. December 22, 2017-patient seen and examined, initially discharged to inpatient psychiatry however no bed is available at this point. Patient is medically stable. Only complaint of headaches. No heart palpitation or chest pain. December 23, 2017-patient seen and examined, complains of abdominal pain, no BM since Saturday Physical Exam Vital signs: Vital Signs 12/22/17 12:00 12/22/17 15:59 12/22/17 20:00 Temperature 98.3 F 98.1 F 97.9 F Pulse Rate 77 77 97 H Respiratory Rate 18 18 21 Blood Pressure 116/65 118/69 112/73 Pulse Oximetry 93 L 100 99 12/23/17 00:00 12/23/17 03:08 12/23/17 04:00 Temperature 98.1 F 97.8 F Pulse Rate 94 H 77 Respiratory Rate 19 18 18 Blood Pressure 109/64 141/66 H Pulse Oximetry 97 97 12/23/17 04:59 Temperature Pulse Rate Respiratory Rate 18 Blood Pressure Pulse Oximetry Intake & Output 12/22/17 12/23/17 12/23/17 18:59 06:59 18:59 Intake Total 740 / 740 Output Total 500 / 500 Balance 240 / 240 Weight 125.4 kg Intake: Oral 740 / 740 Output: Urine 500 / 500 Other: # Voids 2 3 Narrative: GENERAL: NAD SKIN: Warm and dry. HEAD: Atraumatic. Normocephalic. EYES: Pupils equal and round. No scleral icterus. No injection or drainage. ENT: No nasal bleeding or discharge. Mucous membranes pink and moist. NECK: Trachea midline. No JVD. CARDIOVASCULAR: Regular rate and rhythm. RESPIRATORY: No accessory muscle use. Clear to auscultation. Breath sounds equal bilaterally. GASTROINTESTINAL: Abdomen soft, non-tender, nondistended. Hepatic and splenic margins not palpable. MUSCULOSKELETAL: Extremities without clubbing, cyanosis, or edema. No obvious deformities. NEUROLOGICAL: Awake and alert. No obvious cranial nerve deficits. Motor grossly within normal limits. Five out of 5 muscle strength in the arms and legs. Normal speech. PSYCHIATRIC: depressed mood and flat affect; insight and judgment poor. Results - Labs CBC & Chem 7: 12/20/17 03:47 12/20/17 03:47 - Procedures None Assessment and Plan - Assessment (1) Acetaminophen overdose Code(s): T39.1X1A - Poisoning by 4-Aminophenol derivatives, accidental ( unintentional), initial encounter Status: Acute (2) Transaminitis Code(s): R74.0 - Nonspecific elevation of levels of transaminase and lactic acid dehydrogenase [LDH] Status: Acute (3) Depression Code(s): F32.9 - Major depressive disorder, single episode, unspecified Status : Acute - Plan 42-year-old female with Acetaminophen overdose Poison control was contacted, and patient received treatment with N acetylcysteine, charcoal per protocol acetaminophen and salicylate levels now wnl d/c IV fluid hydration Patient has been medically clear for discharge to inpatient psychiatry since December 21, 2017 History of depression Suicidal attempt Psychiatry input appreciated Awaiting for bed availability to inpatient psychiatry for transfer Transaminitis hepatitis profile negative LFTs trending down Hypokalemia Treated with replacement Constipation Start stool softener DVT prophylaxis: Bilateral SCDs Patient has been medically clear for discharge to inpatient psychiatry since December 21, 2017 (1) Acetaminophen overdose Qualifiers: Encounter type: initial encounter Injury intent: intentional self-harm Qualified Code(s): T39.1X2A - Poisoning by 4-Aminophenol derivatives, intentional self-harm, initial encounter
[2017-12-23] MEDS ORDERED: Docusate Sodium 100 MG Capsule PO PRN (09:00)
[2017-12-23] MEDS ORDERED: Senna/Docusate Sodium 8.6/50 MG Tablet PO PRN (09:00)
[2017-12-23] MEDS ORDERED: Aluminum/Magnesium/Simethacone Susp 30 ML UDC PO PRN (09:00)
[2017-12-23 09:34] VITALS: BP 130/76; PULSE 76; RESP 20; TEMP 98.6; O2SAT 98
--- NOTE | 2017-12-23 14:39 | ECG ---
Date Performed: 12/19/2017 Time Performed: 11:35:46 PTAGE: 42 years EKG: SINUS TACHYCARDIA POSSIBLE LEFT ATRIAL ENLARGEMENT ABNORMAL RHYTHM ECG NO PREVIOUS TRACING DOCTOR: Lucian Obrien Interpretating Date/Time 12/23/2017 14:40:01
== END 2017-12-23 12:11 | disposition left against medical advice (07) ==
LOC: NEPC 11:24 → NEDA 13:42 → HIMC 15:33 → N05 12-21 13:34
PROVIDERS: ADMIT Hospitalist; ATTEND Hospitalist